=== PATIENT | male | born 1970 | race Two or more races ===

== ENCOUNTER 2024-09-12 15:28 | Emergency (ER) | payer SELFPAY ==
[~2024-09-12] VITALS: Ht 177.8 cm; Wt 81.8 kg
[2024-09-12 15:56] VITALS: TEMP 98.1
[2024-09-12 15:57] VITALS: PULSE 68; RESP 18; O2SAT 99
[2024-09-12] MEDS: SODIUM CHLORIDE 0.9% 1,000 ML IV ONE (16:03)
[2024-09-12 16:33] LABS: Basophils # (auto) 0 10 ^3/uL (0-0.2); Basophils % (auto) 0.4 % (0.0-2.0); Eosinophils # (auto) 0.5 10 ^3/uL (0-0.8); Eosinophils % (auto) 6.1 % (0.0-7.0); Hematocrit 28.4 % (41.0-53.0); Hemoglobin 9.6 g/dL (13.5-17.5); Lymphocytes # (auto) 1.9 10 ^3/uL (0.4-5.4); Lymphocytes % (auto) 24.4 % (10.0-50.0); Mean Corpuscular Hemoglobin 30.5 pg (28.0-32.0); Mean Corpuscular Hgb Conc. 33.8 g/dL (32.0-36.0); Mean Corpuscular Volume 90.2 fL (80.0-100.0); Monocytes # (auto) 0.6 10 ^3/uL (0-1.3); Monocytes % (auto) 7.6 % (0.0-12.0); Neutrophils # (auto) 4.7 10 ^3/uL (1.6-8.6); Neutrophils % (auto) 61.5 % (37.0-80.0); Nucleated Red Blood Cells % 0.1 %; Platelet Count (auto) 204 10^3/uL (140-450); Red Blood Cells 3.15 10^6/uL (4.5-5.90); White Blood Cell 7.6 10^3/uL (4.4-10.8)
[2024-09-12 16:54] LABS: Alanine Aminotransferase 12 U/L (7-40); Albumin 3.1 g/dL (3.2-4.8); Alkaline Phosphatase 71 U/L (46-116); Anion Gap 5 (5-15); Aspartate Aminotransferase < 8 U/L (13-40); BUN/Creatinine Ratio 18.4 (10.0-20.0); Bilirubin, Total 0.2 mg/dL (0.2-1.0); Blood Alcohol < 3.0 mg/dL (<10); Blood Urea Nitrogen 14 mg/dL (9-23); Calcium 8.6 mg/dL (8.7-10.4); Carbon Dioxide 26 mmol/L (20-31); Chloride 113 mmol/L (98-107); Glucose 121 mg/dL (74-106); Potassium 4.2 mmol/L (3.5-5.1); Sodium 144 mmol/L (136-145)
[2024-09-12 16:55] LABS: Total Protein 5.3 g/dL (5.7-8.2)
[2024-09-12 17:07] LABS: Lipase 24 U/L (12-53)
[2024-09-12] MEDS: IOHEXOL 300 MG/ML 100ML BOTTLE IJ ONE (17:37)
[2024-09-12 19:15] VITALS: BP 108/62; PULSE 65; RESP 14; O2SAT 99
[2024-09-12 19:32] LABS: Urine Bacteria None Seen /hpf (None Seen)
[2024-09-12 20:01] LABS: Urine Blood 1+ /uL (Negative); Urine Clarity Clear (Clear); Urine Color Light-Yellow (Yellow); Urine Hyaline Cast FEW /lpf (0 - 2); Urine Mucus FEW (None Seen); Urine Protein, UAD Negative (Negative); Urine Specific Gravity 1.038 (1.001-1.035); Urine Urobilinogen Normal (Negative); Urine WBC 3 /hpf (0 - 3)
[2024-09-12] MEDS ORDERED: PHENSUP38 PR (20:56)
[2024-09-12] MEDS ORDERED: FER325T PO (20:56)
[2024-09-12 21:02] VITALS: PULSE 74
== END 2024-09-12 21:19 | disposition home or self-care (01) ==
LOC: EDBD 15:28 → ER 15:28
DX: D64.9 Anemia, unspecified (principal); K62.5 Hemorrhage of anus and rectum; R06.02 Shortness of breath; Z79.899 Other long term (current) drug therapy
CPT/HCPCS: 36415; 74177; 80053; 80320; 81001; 83605; 83690; 83880; 84484; 85025; 96360; 99285; J7030; Q9967